=== PATIENT | male | born 1960 ===

== ENCOUNTER 2022-12-30 14:02 | Outpatient (RCR) | payer OTHER ==
[~2022-12-30 14:02] MED LIST: MUCINEX D 600 M1 TER PO; NORCO 325 MG-7.1 TAB PO; PERCOCET 5/321 UDTAB PO; SERTRALINE; XANAX0.5 MG PO; ZITHROMAX Z PA250 MG PO; [UNRECOGNIZED DRUG - OTHER]
== END 2023-01-01 ==
LOC: WSOH
DX: N49.2 Inflammatory disorders of scrotum (principal); Y99.0 Civilian activity done for income or pay; I10 Essential (primary) hypertension